=== PATIENT | female | born 1960 | race Caucasian/White ===

== ENCOUNTER 2023-03-01 09:26 | Day surgery (SDC) | payer OTHER ==
[2023-02-24 10:13] VITALS: BMI 30.5
[2023-03-01] MEDS ORDERED: LACTATED RINGERS 1,000 ML IV ONE (10:17)
[2023-03-01 10:36] VITALS: RESP 16; TEMP 97.9
[2023-03-01] MEDS ORDERED: PROPOFOL 10 MG/ML 20 ML VIAL IV ONE (10:44)
[2023-03-01] MEDS ORDERED: LIDOCAINE 1% INJ 10MG/ML (20 ML MDV) ONE (10:44)
--- NOTE | 2023-03-01 10:52 | P.GSHP ---
History of Present Illness H&P Date: 03/01/23 Chief Complaint: Colon cancer screening 62-year-old female here for colonoscopy. She has not had one previously. No bowel complaints. He family history of colon cancer in father. Past Medical History Past Medical History: Asthma, GERD/Reflux, Osteoarthritis (OA) Additional Past Medical History / Comment(s): states hx of rapid heart beat., herniated discs with back pain- currently receiving physical therapy. History of Any Multi-Drug Resistant Organisms: None Reported Additional Past Surgical History / Comment(s): conization of cervix Past Anesthesia/Blood Transfusion Reactions: No Reported Reaction Past Psychological History: Depression Smoking Status: Current every day smoker Past Alcohol Use History: Daily Additional Past Alcohol Use History / Comment(s): smokes 5-10 cigarettes, started smoking at 15 years old. Drinks 1, 2 or 3 glasses of wine usually daily Past Drug Use History: None Reported - Past Family History Father Family Medical History: Cancer Additional Family Medical History / Comment(s): colon cancer Mother Family Medical History: No Reported History Additional Family Medical History / Comment(s): pts grandmother had breast cancer Medications and Allergies Home Medications Medication Instructions Recorded Confirmed Type Albuterol Inhaler [Ventolin Hfa 1 - 2 puff INHALATION Q6H PRN 02/24/23 03/01/23 History Inhaler] Albuterol Nebulizer 1 dose PO DIRECTED PRN 02/24/23 03/01/23 History Calcium Carbonate [Tums] 500 mg PO QID PRN 02/24/23 03/01/23 History FLUoxetine HCL [PROzac] 10 mg PO HS 02/24/23 03/01/23 History Ketorolac [Toradol] 10 mg PO Q6HR PRN 02/24/23 03/01/23 History Multivit with Calcium,Iron,Min 1 each PO DAILY 02/24/23 03/01/23 History [Women's Multivitamin] Thiamine [Vitamin B-1] 100 mg PO DAILY 02/24/23 03/01/23 History Allergies Allergy/AdvReac Type Severity Reaction Status Date / Time codeine Allergy Severe Nausea & Verified 02/24/23 09:27 Vomiting Surgical - Exam Vital Signs Temp Pulse Resp BP Pulse Ox 97.9 F 80 16 152/83 93 L 03/01/23 10:13 03/01/23 10:13 03/01/23 10:13 03/01/23 10:13 03/01/23 10:13 Physical exam: General: Well-developed, well-nourished HEENT: Normocephalic, sclerae nonicteric Abdomen: Nontender, nondistended Extremities: No edema Neuro: Alert and oriented Assessment and Plan (1) Colon cancer screening Narrative/Plan: Will proceed with colonoscopy at this time. Current Visit: Yes Status: Acute Code(s): Z12.11 - ENCOUNTER FOR SCREENING FOR MALIGNANT NEOPLASM OF COLON SNOMED Code(s): 652524029
--- NOTE | 2023-03-01 11:12 | P.PCN ---
Date of Procedure: 03/01/23 Procedure(s) Performed: PREOPERATIVE DIAGNOSIS: Colon cancer screening, family history of colon cancer POSTOPERATIVE DIAGNOSIS: Transverse colon polyp, diverticulosis PROCEDURE: Colonoscopy with snare polypectomy ANESTHESIA: MAC SURGEON: Guilherme Yeh M.D. SPECIMENS: Polyp ENDOSCOPIC PROCEDURE: The patient was placed on the endoscopy table in the left decubitus position. The Olympus colonoscope was inserted into the anus and passed under direct visualization to the base of the cecum. The appendiceal orifice was visualized. From that point the scope was slowly withdrawn inspecting all surfaces carefully. There were no neoplastic inflammatory or polypoid lesions throughout the cecum or ascending colon. In the transverse colon a small polyp was seen and removed using the snare with cautery technique. The remainder of the transverse descending sigmoid and rectum appeared normal. There was extensive left-sided diverticulosis. Digital rectal examination was normal. The patient was taken to the recovery room in stable condition per anesthesia guidelines. RECOMMENDATIONS: Await biopsy results. Repeat colonoscopy 5 years.
[2023-03-01 11:37] VITALS: BP 147/86; PULSE 76
== END 2023-03-01 12:01 | disposition home or self-care (01) ==
LOC: ORWHC2ENDO 09:26 → EDBD 12:25
PROVIDERS: ATTEND Surgery
DX: Z12.11 Encounter for screening for malignant neoplasm of colon (principal); D12.3 Benign neoplasm of transverse colon; K57.30 Diverticulosis of large intestine without perforation or abscess without bleeding; J45.909 Unspecified asthma, uncomplicated; K21.9 Gastro-esophageal reflux disease without esophagitis; F32.A Depression, unspecified; M19.90 Unspecified osteoarthritis, unspecified site; F17.210 Nicotine dependence, cigarettes, uncomplicated; F10.90 Alcohol use, unspecified, uncomplicated; Z80.0 Family history of malignant neoplasm of digestive organs
CPT/HCPCS: 88305; 45385; J2001; J2704

== ENCOUNTER → 2023-04-06 | Outpatient (CLI) | payer OTHER ==
--- NOTE | 2023-04-07 12:16 | MR ---
EXAMINATION TYPE: MR lumbar spine wo con DATE OF EXAM: 04/06/2023 6:30 PM CLINICAL INDICATION:Female, 62 years old with history of M54.50; PHH, Chronic LBP, RLE radiculopathy. COMPARISON: None TECHNIQUE: Multi planar, multi sequence imaging was performed utilizing: T1-weighted, T2-weighted, a nd turbo inversion recovery imaging of the lumbar spine. IV Contrast:(None if empty) FINDINGS: Alignment: The lumbar vertebral bodies have preserved heights with grade 1 anterolisthesis of L4 on L 5. Cord: The conus medullaris and the distal spinal cord appear unremarkable with regards to their signa l intensity and morphology. Bones/Discs: Minimal disc degeneration changes worse at L5-S1 with disc space narrowing, osteophytes and Modic endplate changes. Intervertebral disc signal is maintained. T12-L1: No evidence of significant spinal canal stenosis or neural foraminal stenosis. L1-L2: No evidence of significant spinal canal stenosis or neural foraminal stenosis. L2-L3: No evidence of significant spinal canal stenosis or neural foraminal stenosis. L3-L4: No evidence of significant spinal canal stenosis or neural foraminal stenosis. L4-L5: Disc uncovering from grade 1 anterolisthesis and facet joint arthropathy with mild spinal kam l stenosis and mild bilateral neural foraminal stenosis. L5-S1: Eccentric disc bulge/osteophyte which displaces the forming L5-S1/ exiting right S1/S2 nerve F acet joint arthropathy with mild bilateral neural foraminal stenosis. No significant spinal canal or neural foraminal stenosis in the remainder of the visualized levels. Other findings: None. IMPRESSION: 1. Eccentric disc bulging/osteophyte which displaces the exiting S1-S2 nerve and the right. 2. No significant spinal canal stenosis. 3. Updt-mg-hxoywtua disc degeneration with associated osteoarthritic changes with scattered mild yen ral foraminal stenosis.
== END | disposition home or self-care (01) ==
LOC: RADMRIMAIN 17:01
PROVIDERS: ATTEND Orthopaedic Surgery
DX: M51.16 Intervertebral disc disorders with radiculopathy, lumbar region (principal); M47.26 Other spondylosis with radiculopathy, lumbar region; M99.73 Connective tissue and disc stenosis of intervertebral foramina of lumbar region
CPT/HCPCS: 72148

== ENCOUNTER → 2023-08-19 | Outpatient (CLI) | payer OTHER ==
--- NOTE | 2023-08-30 00:19 | MR ---
EXAMINATION TYPE: MR foot LT wo con DATE OF EXAM: 08/19/2023 COMPARISON: Left ankle radiograph 07/12/2023 HISTORY: Left foot and ankle pain, swelling, and redness due to object falling on foot and twisting i t. TECHNIQUE: Multiplanar, multisequence images of the left foot were acquired without contrast. FINDINGS: BONES/CARTILAGE/JOINT: Nondisplaced fracture of the distal aspect of the cuboid with intra-articular extension to the fourth /fifth cuboid-metatarsal joints. Nondisplaced intra-articular fracture of the intermediate cuneiform at the intermediate-second metata rsal joint. Reactive posttraumatic edema in the second-fifth metatarsal base. Nondisplaced fracture of the fourth proximal phalanx. Partially evaluated osteochondral defect in the medial talar dome. Articular cartilage is normal. Small cuboid-metatarsal joint effusion. LIGAMENTS: Spring ligament is normal. Lisfranc ligament normal. Normal plantar plates. TENDONS: Flexor tendons are normal. Extensor tendons are normal. SOFT TISSUES: Dorsal soft tissue edema. Small dorsal ganglion cyst from the naviculocuneiform joint. No bursal distention. No intermetatarsal bursa or soft tissue mass. Sinus tarsi is normal. Plantar fascia is normal. Neurovascular structures are normal. IMPRESSION: 1. Nondisplaced fractures involving the cuboid, intermediate cuneiform, and fourth proximal phalanx. 2. Reactive bone marrow edema in the second-fifth metatarsal bases. 3. Partially evaluated talar osteochondral defect.
--- NOTE | 2023-08-30 00:25 | MR ---
EXAMINATION TYPE: MR ankle LT wo con DATE OF EXAM: 08/19/2023 COMPARISON: Left ankle radiograph 07/12/2023 HISTORY: Left foot and ankle pain, swelling, and redness due to object falling on foot and twisting i t. Multiplanar, multisequence images of the left ankle were acquired without contrast. FINDINGS: LIGAMENTS: Anterior talofibular, calcaneofibular, posterior talofibular ligaments are normal. Deltoid ligamentous complex is normal. Tibiofibular syndesmosis is normal. Spring ligament is normal. Lisfranc ligament normal. PERONEAL TENDONS: Normal. FLEXOR TENDONS: Normal. EXTENSOR TENDONS: Normal. ACHILLES TENDON: Normal. BONES/CARTILAGE/JOINT: Osteochondral defect in the medial talar dome with approximately 1-2 mm of cortical step-off. Acute fractures in the tarsal bones better evaluated on foot MRI obtained concomitantly. Thinning of the talar articular cartilage. No joint effusion. SOFT TISSUES: No bursal distention. Kager's fat pad is normal. Sinus tarsi is normal. Plantar fascia is normal. Neurovascular structures are normal. IMPRESSION: 1. Medial talar dome osteochondral defect with 1-2 mm of cortical step-off. 2. Refer to MRI foot report for details regarding the midfoot/forefoot findings.
== END | disposition home or self-care (01) ==
LOC: RADMRIMAIN 13:55
PROVIDERS: ATTEND Family Medicine
DX: S92.215A Nondisplaced fracture of cuboid bone of left foot, initial encounter for closed fracture (principal); S99.922A Unspecified injury of left foot, initial encounter; M93.272 Osteochondritis dissecans, left ankle and joints of left foot; R60.0 Localized edema; X58.XXXA Exposure to other specified factors, initial encounter

== ENCOUNTER → 2024-02-29 | Outpatient (CLI) | payer OTHER ==
[2024-02-29 19:57] LABS: Basophils # (A) 0.04 X 10*3/uL (0.00-0.10); Basophils % (A) 0.8 %; Eosinophils # (A) 0.12 X 10*3/uL (0.04-0.35); Eosinophils % (A) 2.5 %; HCT 47.5 % (37.2-46.3); HGB 15.1 g/dL (12.0-15.0); Lymphocytes # (A) 1.36 X 10*3/uL (0.90-5.00); MCH 32.5 pg (27.0-32.0); MCHC 31.8 g/dL (32.0-37.0); MCV 102.2 FL (80.0-97.0); Monocytes # (A) 0.35 X 10*3/uL (0.20-1.00); Monocytes % (A) 7.2 %; NRBC Per 100 WBC 0 X 10*3/uL (0.00-0.01); Neutrophils # (A) 2.96 X 10*3/uL (1.80-7.70); Neutrophils % (A) 61.1 %; Platelet Count 219 X 10*3/uL (140-440); RBC 4.65 X 10*6/uL (4.10-5.20); RDW 14.3 % (11.5-14.5); WBC 4.85 X 10*3/uL (4.50-10.00)
[2024-02-29 20:06] LABS: INR 0.99 sec (0.93-1.11); Prothrombin Time 10.7 sec (9.9-11.9)
[2024-02-29 22:06] LABS: ALT 14 U/L (8-44); AST 18 U/L (13-35); Albumin 4.4 g/dL (3.8-4.9); Albumin/Globulin Ratio 1.63 Ratio (1.60-3.17); Alkaline Phosphatase 87 U/L (41-126); BUN/Creat Ratio 19.75 Ratio (12.00-20.00); Blood Urea Nitrogen 15.8 mg/dL (9.0-27.0); Calcium 9.1 mg/dL (8.7-10.3); Carbon Dioxide 28.6 mmol/L (21.6-31.8); Chloride 100 mmol/L (96-109); Globulin 2.7 g/dL (1.6-3.3); Glucose 140 mg/dL (70-110); Sodium 139 mmol/L (135-145); Total Bilirubin 0.4 mg/dL (0.3-1.2); Total Protein 7.1 g/dL (6.2-8.2)
== END | disposition home or self-care (01) ==
LOC: LABWHC1 13:01
PROVIDERS: ATTEND Nurse Practitioner Family
DX: Z01.812 Encounter for preprocedural laboratory examination (principal)
CPT/HCPCS: 36415; 80053; 85025; 85610

== ENCOUNTER → 2024-02-29 | Outpatient (CLI) | payer OTHER ==
--- NOTE | 2024-02-29 17:51 | XR ---
EXAMINATION TYPE: XR cervical spine 4 views DATE OF EXAM: 02/29/2024 Comparison: None Clinical History: 63-year-old female M54.12 RADICULOPATHY, CERVICAL REGION TECHNIQUE: AP, lateral, odontoid, and swimmer's views. Findings: No predental space widening or prevertebral soft tissue swelling. Moderate to severe degenerative dis c disease C4-C6 levels. Moderate C6/C7 and C7-T1. Degenerative grade 1 anterolisthesis C3-C4. Otherwise, there is straightening of the normal cervical lordosis and no other malalignment is seen. Multilevel hypertrophic facet and uncovertebral joint art hropathy especially mid to lower cervical spine. Normal odontoid view. Impression: 1. Moderate to advanced spondylotic change C4-C6 levels. Moderate from C6-T1 levels. 2. Degenerative grade 1 anterolisthesis C3-C4. 3. Straightening of the normal cervical lordosis could be positional or due to muscle spasm. [facility], , 02/29/2024 5:49 PM
== END | disposition home or self-care (01) ==
LOC: RADXRMAIN 12:44
PROVIDERS: ATTEND Family Medicine
CPT/HCPCS: 72040

== ENCOUNTER → 2024-07-13 | Outpatient (CLI) | payer OTHER ==
--- NOTE | 2024-07-13 16:33 | MM ---
Reason for Exam: Screening (asymptomatic). Patient History: Menarche at age 18. First Full-Term at age 32. Late child-bearing (after 32). Patient has history of breast feeding. Other cancer, age 25. Patient used Hormonal Contraceptives for 7 years. Maternal grandmother had breast cancer at or over age 50. Maternal cousin (saranya) had breast cancer at or over age 50. Paternal cousin (corry) had breast cancer at or over age 50. Risk Values: Sharon 5 year model risk: 1.9%. NCI Lifetime model risk: 8.6%. Prior Study Comparison: No prior studies available for comparison. Tissue Density: The breasts are heterogeneously dense, which may obscure small masses. Findings: Analyzed By CAD. A few scattered benign punctate and round calcifications are demonstrated. No suspicious grouped microcalcification, significant masses, or other discrete abnormality is seen. Overall Assessment: Benign, BI-RAD 2 Management: Screening Mammogram of both breasts in 1 year. Patient should continue monthly self-breast exams. A clinical breast exam by your physician is recommended on an annual basis. This exam should not preclude additional follow-up of suspicious palpable abnormalities. Note on Sharon scores and lifetime risk: 1. A Sharon score greater than 3% is considered moderate risk. If this is the case, consider specialist referral to assess eligibility for a risk reducing agent. 2. If overall lifetime risk for the development of breast cancer is 20% or higher, the patient may qualify for future screening with alternating mammogram and breast MRI. [facility], , 07/13/2024 4:29 PM. Electronically signed and approved by: Ivan Fowler M.D. Radiologist
== END | disposition home or self-care (01) ==
LOC: RADMAMWWP 15:44
PROVIDERS: ATTEND Family Medicine
DX: Z12.31 Encounter for screening mammogram for malignant neoplasm of breast (principal); R92.333 Mammographic heterogeneous density, bilateral breasts; Z92.0 Personal history of contraception; Z80.3 Family history of malignant neoplasm of breast
CPT/HCPCS: 77063; 77067